=== PATIENT | male | born 2000 | race Two or more races ===

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

== ENCOUNTER → 2020-09-17 | Outpatient (CLI) | payer SELFPAY ==
[~2020-09-17] MED LIST: CETI10TA; CETI10TA PO; PARO20TA3 PO; PARO5TAB PO; SERT-141 PO
== END ==
LOC: M LABSMTC 11:07
PROVIDERS: ATTEND Pediatrics
DX: Z20.822 Contact with and (suspected) exposure to COVID-19 (principal)

== ENCOUNTER → 2022-09-29 | Outpatient (REF) | LOC: M EMP 11:09 | PROVIDERS: ATTEND Family Medicine | DX: Z20.822 Contact with and (suspected) exposure to COVID-19 (principal) ==

== ENCOUNTER → 2022-10-06 | Outpatient (REF) | LOC: M EMP 09:24 | PROVIDERS: ATTEND Family Medicine | DX: Z11.52 Encounter for screening for COVID-19 (principal) ==

== ENCOUNTER → 2024-11-24 | Outpatient (REF) | payer MEDICAID, SELFPAY ==
[2024-11-24 19:10] LABS: HEPATITIS B SURFACE ANTIGEN NEGATIVE (NEGATIVE)
[2024-11-24 19:23] LABS: HIV 1&2 SCREEN NEGATIVE (NEGATIVE)
[2024-11-24 19:31] LABS: HEPATITIS B CORE ANTIBODY IGM NEGATIVE (NEGATIVE); HEPATITIS C VIRUS ABY INDEX 0.03 INDEX (<0.8)
[2024-11-24 20:35] LABS: GC DNA AMPLIFICATION NEGATIVE (NEGATIVE)
== END ==
LOC: M SFHCCLAY 13:05
PROVIDERS: ATTEND Family Medicine
DX: Z11.3 Encounter for screening for infections with a predominantly sexual mode of transmission (principal)

== ENCOUNTER → 2025-03-15 | Outpatient (CLI) | payer MEDICAID, OTHER ==
[2025-03-15 14:22] LABS: HIV 1&2 SCREEN NEGATIVE (NEGATIVE)
[2025-03-15 14:30] LABS: HEPATITIS C VIRUS ABY INDEX < 0.02 INDEX (<0.8)
[2025-03-15 16:05] LABS: Trichomonas vaginalis (AMP) NOT DETECTED (NEGATIVE)
[2025-03-15 17:24] LABS: GC DNA AMPLIFICATION NEGATIVE (NEGATIVE)
[2025-03-17 19:08] LABS: HSV SOURCE Serum; HSV-1 DNA Not Detected (Not Detected); HSV-2 DNA Not Detected (Not Detected)
== END ==
LOC: M PLALAB 10:20
PROVIDERS: ATTEND Nurse Practitioner Family
DX: R36.9 Urethral discharge, unspecified (principal)

== ENCOUNTER → 2025-03-23 | Outpatient (REF) | payer OTHER | LOC: M SFHCCLAY 13:46 | PROVIDERS: ATTEND Physician Assistant | DX: R36.9 Urethral discharge, unspecified (principal) ==